=== PATIENT | male | born 1990 | race Caucasian/White ===

== ENCOUNTER 2017-02-28 14:18 | Emergency (ER) | payer MEDICAID, OTHER ==
[2017-02-28] MEDS ORDERED: DIPHENHYDRAMINE HCL 50 MG CAPSULE PO ONE (15:59)
[2017-02-28] MEDS ORDERED: PREDNISONE 20 MG TABLET PO ONE (15:59)
[2017-02-28] MEDS ORDERED: LIDOCAINE 4%/TETRACAINE 0.5%/EPI 0.18% 5 ML TOPICAL SOLN TOP ONE (16:01)
--- NOTE | 2017-02-28 16:02 | ER Document Report ---
ED Oral Problem - General Chief Complaint: Mouth Problem Stated Complaint: SORE ON MOUTH, SWELLING Time Seen by Provider: 02/28/17 15:59 Mode of Arrival: Ambulatory Information source: Patient Notes: Patient is a 26-year-old male who presents to the ER today for swelling to the middle of his upper lip 1 day. Patient admits to swelling to the middle upper gum as well. He states he has really poor teeth and does not know if he has an abscess or not. He denies having a dentist. He denies any fevers or chills. He states that he thought swelling from his upper lip was from eating a piece of pizza that he had never had from this restaurant before and that he may have had an allergic reaction. He denies any trouble breathing or hives anywhere. TRAVEL OUTSIDE OF THE [place] IN LAST 30 DAYS: No - Related Data Allergies/Adverse Reactions: No Known Allergies Allergy (Verified 02/28/17 14:19) Past Medical History - General Information source: Patient - Social History Smoking Status: Never Smoker Chew tobacco use (# tins/day): No Frequency of alcohol use: None Drug Abuse: None Family History: Reviewed & Not Pertinent Patient has suicidal ideation: No Patient has homicidal ideation: No Renal/ Medical History: Denies: Hx Peritoneal Dialysis - Immunizations Hx Diphtheria, Pertussis, Tetanus Vaccination: Yes Review of Systems - Review of Systems Constitutional: No symptoms reported EENT: See HPI Cardiovascular: No symptoms reported Respiratory: No symptoms reported Gastrointestinal: No symptoms reported Genitourinary: No symptoms reported Male Genitourinary: No symptoms reported Musculoskeletal: No symptoms reported Skin: No symptoms reported Hematologic/Lymphatic: No symptoms reported Neurological/Psychological: No symptoms reported Physical Exam - Vital signs Vitals: Temp Pulse Resp BP Pulse Ox 99.2 F 99 17 132/87 H 98 02/28/17 15:06 02/28/17 15:06 02/28/17 15:06 02/28/17 15:06 02/28/17 15:06 - Notes Notes: PHYSICAL EXAMINATION: GENERAL: Well-appearing and in no acute distress. HEAD: Atraumatic, normocephalic. EYES: Pupils equal round and reactive to light, extraocular movements intact, sclera anicteric, conjunctiva are normal. ENT: ear canals without erythema or foreign body, TMs pearly hilton with good bony landmarks, nares patent, oropharynx clear without exudates. Moist mucous membranes.. Poor dentition, most teeth are fractured, about a 1 cm dental abscess to the center of the upper gumline with edema to the center of the upper lip corresponding, abscess tender to palpation NECK: Normal range of motion, supple without lymphadenopathy LUNGS: CTAB and equal. No wheezes rales or rhonchi. HEART: Regular rate and rhythm without murmurs EXTREMITIES: Normal range of motion, no pitting edema. No cyanosis. NEUROLOGICAL: Cranial nerves grossly intact. Normal sensory/motor exams. PSYCH: Normal mood, normal affect. SKIN: Warm, Dry, normal turgor, no rashes or lesions noted Course - Re-evaluation Re-evalutation: 02/28/17 19:47 Abscess was incised and drained with an 18-gauge, patient tolerated well, moderate amount of pus was relieved, patient placed on amoxicillin and given prednisone in case the swelling to his upper lip is from a mild reaction - Vital Signs Vital signs: Temp Pulse Resp BP Pulse Ox 99.1 F 93 16 111/69 97 02/28/17 17:57 02/28/17 17:57 02/28/17 17:57 02/28/17 17:57 02/28/17 17:57 Procedures - Incision and Drainage Mid- Face Time completed: 17:00 Type: Simple Anesthetic type: Other - l.e.t topical Blade size: Other - 18g needle Incision Method: Incision made with needle Amount/type of drainage: pus Discharge - Discharge Clinical Impression: dental abscess Condition: Stable Disposition: HOME, SELF-CARE Additional Instructions: Return immediately for any new or worsening symptoms. Follow up with primary care provider, call tomorrow to make followup appointment. Prescriptions: Amoxicillin 500 mg PO TID #30 capsule Prednisone [Deltasone 20 mg Tablet] 2 tab PO DAILY 5 Days #10 tablet
[2017-02-28 17:58] VITALS: BP 111/69
== END 2017-02-28 18:30 | disposition home or self-care (01) ==
LOC: ER 14:18
DX: K04.7 Periapical abscess without sinus (principal); K08.89 Other specified disorders of teeth and supporting structures; R22.0 Localized swelling, mass and lump, head
CPT/HCPCS: 99282; J7512; J3490